=== PATIENT | female | born 1970 | race Two or more races ===

== ENCOUNTER 2020-12-05 08:07 | Emergency (ER) | payer OTHER ==
[~2020-12-05] VITALS: Ht 162.6 cm; Wt 64.4 kg
== END 2020-12-05 10:35 | disposition home or self-care (01) ==
LOC: ER 08:07
DX: L53.8 Other specified erythematous conditions (principal); W56.81XA Bitten by other nonvenomous marine animals, initial encounter; Y93.11 Activity, swimming; Y92.89 Other specified places as the place of occurrence of the external cause

== ENCOUNTER 2022-09-08 14:05 | Outpatient (CLI) | payer OTHER | END 2022-09-08 14:08 | disposition home or self-care (01) | LOC: NUCLEAR 14:05 | PROVIDERS: ATTEND Internal Medicine | DX: M81.0 Age-related osteoporosis without current pathological fracture (principal) ==